=== PATIENT | male | born 1965 | race Caucasian/White ===

== ENCOUNTER 2022-04-15 04:42 | Emergency (ER) | payer OTHER ==
[2022-04-15] MEDS ORDERED: Hydromorphone 1 mg/ml Injection IV ONE (05:01)
[2022-04-15] MEDS ORDERED: Zofran 4 MG/2 ML VIAL IV ONE (05:01)
[2022-04-15] MEDS ORDERED: Sodium Chloride 0.9% 1000 ML 1,000 ML IV STA (05:01)
[2022-04-15] MEDS ORDERED: TORAdol 30 mg Injection IV ONE (05:01)
[2022-04-15] MEDS ORDERED: Zofran 4 MG/2 ML VIAL ONE (05:04)
[2022-04-15] MEDS ORDERED: TORAdol 30 mg Injection ONE (05:04)
[2022-04-15] MEDS ORDERED: Sodium Chloride 0.9% 1000 ML 1,000 ML ONE (05:04)
[2022-04-15] MEDS ORDERED: Hydromorphone 1 mg/ml Injection ONE (05:04)
--- NOTE | 2022-04-15 05:28 | ERPHSYRPT ---
- History of Present Illness Time Seen by Provider: 04/15/22 05:05 Historian: patient Exam Limitations: no limitations Patient Subjective Stated Complaint: pt states that he was having frequent urination tonight, then he was not able to urinate any more. then he began havi ng pain in his groin. Triage Nursing Assessment: pt alert and oriented, answers questions approp. pt back per wheelchair. transfers to stretcher with assist of 1. pt very restless and states pain is beter when he stays bent over at this waist. pt moaning with movement. abd with hypo bowel sounds noted. no urine at this time. Physician History: This is a 56-year-old white male who has no medical issues and is not on any medication and has no known drug allergies and presents with right groin pain that was relatively sudden in onset. Earlier, he was having urinary frequency followed by urgency but difficulty to pass urine. He has never had a thing like this in the past. Patient arrives to the emergency department writhing around in significant pain. Timing/Duration: today Activities at Onset: none Quality: aching, pressure, throbbing Abdominal Pain Onset Location: other Pain Radiation: groin (Right groin) Severity of Pain-Max: moderate Severity of Pain-Current: moderate Modifying Factors: Improves With: nothing Associated Symptoms: other (Right groin) Home Medications: Unobtainable 04/15/22 [History] Hx Tetanus, Diphtheria Vaccination/Date Given: Yes Hx Influenza Vaccination/Date Given: No Hx Pneumococcal Vaccination/Date Given: No Immunizations Up to Date: Yes Travel Risk - International Travel Have you traveled outside of the country in past 3 weeks: No - Coronavirus Screening Are you exhibiting any of the following symptoms?: No Close contact with a COVID-19 positive Pt in past 14-21 Days: No - Vaccine Status Have you recieved a Covid-19 vaccination: No - Review of Systems Constitutional: No Symptoms Eyes: No Symptoms Ears, Nose, & Throat: No Symptoms Respiratory: No Symptoms Cardiac: No Symptoms Abdominal/Gastrointestinal: No Symptoms Genitourinary Symptoms: Frequency, Other (Right groin pain) Musculoskeletal: No Symptoms Skin: No Symptoms Neurological: No Symptoms Psychological: No Symptoms Endocrine: No Symptoms Hematologic/Lymphatic: No Symptoms Immunological/Allergic: No Symptoms All Other Systems: Reviewed and Negative - Past Medical History Pertinent Past Medical History: Yes Endocrine Medical History: Hypothyroidism - Past Surgical History Past Surgical History: Yes - Social History Smoking Status: Never smoker Exposure to second hand smoke: No Drug Use: none Patient Lives Alone: No - Nursing Vital Signs Nursing Vital Signs: Initial Vital Signs Temperature 98.1 F 04/15/22 04:51 Pulse Rate 84 04/15/22 04:51 Respiratory Rate 22 04/15/22 04:51 Blood Pressure 127/104 04/15/22 04:51 O2 Sat by Pulse Oximetry 98 04/15/22 04:51 Pain Scale Pain Intensity 10 - Physical Exam General Appearance: mild distress, alert, anxiety Eye Exam: PERRL/EOMI, eyes nml inspection Ears, Nose, Throat Exam: normal ENT inspection, moist mucous membranes Neck Exam: normal inspection, non-tender, supple, full range of motion Respiratory Exam: normal breath sounds, lungs clear, airway intact, No chest tenderness, No respiratory distress Cardiovascular Exam: regular rate/rhythm, normal heart sounds, normal peripheral pulses Gastrointestinal/Abdomen Exam: soft, normal bowel sounds, No tenderness Male Genitalia Exam: other (Right groin pain) Rectal Exam: not done Back Exam: normal inspection, normal range of motion, No CVA tenderness, No vertebral tenderness Extremity Exam: normal inspection, normal range of motion, pelvis stable Neurologic Exam: alert, oriented x 3, cooperative, boom tender II-XII nml as tested, normal mood/affect, nml cerebellar function, nml station & gait, sensation nml Skin Exam: normal color, warm, dry Lymphatic Exam: No adenopathy SpO2 Interpretation: normal SpO2: 98 O2 Delivery: Room Air - Course Nursing assessment & vital signs reviewed: Yes Ordered Tests: Active Orders 24 hr Category Date Time Status IV Insertion STAT Care 04/15/22 05:01 Active ABDOMEN AND PELVIS W/0 CONTRAS [CT] Stat Exams 04/15/22 05:01 Taken AMYLASE Stat Lab 04/15/22 05:27 Completed CBC W DIFF Stat Lab 04/15/22 05:27 Completed CMP Stat Lab 04/15/22 05:27 Completed LIPASE Stat Lab 04/15/22 05:27 Completed UA W/RFX CULTURE Stat Lab 04/15/22 05:27 Completed Medication Summary Discontinued Medications Generic Name Dose Route Start Last Admin Trade Name Freq PRN Reason Stop Dose Admin Hydromorphone HCl 1 mg 04/15/22 05:01 04/15/22 05:08 Hydromorphone 1 Mg/1ml Inj 1 Mg/Ml Syringe IV 04/15/22 05:02 1 mg STAT ONE Administration Hydromorphone HCl Confirm 04/15/22 05:04 Hydromorphone 1 Mg/1ml Inj 1 Mg/Ml Syringe Administered 04/15/22 05:05 Dose 1 mg .ROUTE .STK-MED ONE Sodium Chloride 1,000 mls @ 999 mls/hr 04/15/22 05:01 04/15/22 05:08 Sodium Chloride 0.9% 1000 Ml IV 04/15/22 06:01 999 mls/hr .Q1H1M STA Administration Sodium Chloride Confirm 04/15/22 05:04 Sodium Chloride 0.9% 1000 Ml Administered 04/15/22 05:05 Dose 1,000 mls @ ud .ROUTE .STK-MED ONE Ketorolac Tromethamine 30 mg 04/15/22 05:01 04/15/22 05:07 Ketorolac Tromethamine 30 Mg/Ml Inj IV 04/15/22 05:02 30 mg STAT ONE Administration Ketorolac Tromethamine Confirm 04/15/22 05:04 Ketorolac Tromethamine 30 Mg/Ml Inj Administered 04/15/22 05:05 Dose 30 mg .ROUTE .STK-MED ONE Ondansetron HCl 4 mg 04/15/22 05:01 04/15/22 05:07 Ondansetron Hcl 4 Mg/2 Ml Vial IV 04/15/22 05:02 4 mg STAT ONE Administration Ondansetron HCl Confirm 04/15/22 05:04 Ondansetron Hcl 4 Mg/2 Ml Vial Administered 04/15/22 05:05 Dose 4 mg .ROUTE .STK-MED ONE Lab/Rad Data: Laboratory Result Diagrams 04/15/22 05:27 04/15/22 05:27 Laboratory Results 04/15/22 04/15/22 04/15/22 Range/Units 05:27 05:27 05:27 WBC 7.7 (4.0-10.5) x10^3/uL RBC 5.12 (4.1-5.6) x10^6/uL Hgb 16.1 (12.5-18.0) g/dL Hct 46.0 (42-50) % MCV 89.8 (78-100) fL MCH 31.4 (26-32) pg MCHC 35.0 (32-36) g/dL RDW 12.6 (11.5-14.0) % Plt Count 241 (150-450) x10^3/uL MPV 10.0 (7.5-11.0) fL Gran % 46.6 (36.0-66.0) % Immature Gran % (Auto) 0.4 (0.00-0.4) % Nucleat RBC Rel Count 0.0 (0.00-0.1) % Eos # (Auto) 0.21 (0-0.5) x10^3/uL Immature Gran # (Auto) 0.03 (0.00-0.03) x10^3u/L Absolute Lymphs (auto) 3.17 (1.0-4.6) x10^3/uL Absolute Monos (auto) 0.65 (0.0-1.3) x10^3/uL Absolute Nucleated RBC 0.00 (0.00-0.01) x10^3u/L Lymphocytes % 41.4 (24.0-44.0) % Monocytes % 8.5 (0.0-12.0) % Eosinophils % 2.7 (0.00-5.0) % Basophils % 0.4 (0.0-0.4) % Absolute Granulocytes 3.57 (1.4-6.9) x10^3/uL Basophils # 0.03 (0-0.4) x10^3/uL Sodium 141 (137-145) mmol/L Potassium 4.4 (3.5-5.1) mmol/L Chloride 106 (98-107) mmol/L Carbon Dioxide 21 L (22-30) mmol/L Anion Gap 18.1 H (5-15) MEQ/L BUN 17 (9-20) mg/dL Creatinine 1.04 (0.66-1.25) mg/dL Estimated GFR > 60.0 ML/MIN Glucose 100 (74-106) mg/dL Calcium 9.6 (8.4-10.2) mg/dL Total Bilirubin 0.70 (0.2-1.3) mg/dL AST 28 (17-59) U/L ALT 36 (0-50) U/L Alkaline Phosphatase 85 (38-126) U/L Serum Total Protein 8.3 H (6.3-8.2) g/dL Albumin 5.0 (3.5-5.0) g/dL Amylase 91 (30-110) U/L Lipase 99 (23-300) U/L Urinalys Dipstick Clnc MAIN LAB Urine Color YELLOW (YELLOW) Urine Appearance CLEAR (CLEAR) Urine pH 6.0 (5-6) Ur Specific [place] 1.010 (1.005-1.025) POC Urine Protein Conf NEGATIVE (Negative) Urine Ketones NEGATIVE (NEGATIVE) Urine Nitrite NEGATIVE (NEGATIVE) Urine Bilirubin NEGATIVE (NEGATIVE) Urine Urobilinogen 0.2 (0-1) mg/dL Urine Leukocytes NEGATIVE (NEGATIVE) Urine WBC (Auto) NONE (0-5) /HPF Urine RBC (Auto) NONE (0-2) /HPF U Epithel Cells (Auto) Not Reportable Urine Bacteria (Auto) Not Reportable Urine RBC NEGATIVE (0-5) Henri/ul Ur Culture Indicated? NO Urine Glucose NEGATIVE (NEGATIVE) mg/dL - Progress Progress: improved, pain not gone completely, re-examined Progress Note: 04/15/22 06:59 CT scan of the abdomen pelvis without contrast is still pending. Patient does not want a Cardona catheter placed until he sees the results of this study. The patient may have urinary retention. Dr. Leon was informed of this pending test and he will follow-up and make final disposition on this patient. 04/15/22 06:59 Counseled pt/family regarding: lab results, diagnosis, need for follow-up, rad results - Departure Departure Disposition: Home Clinical Impression: Urinary retention Condition: Stable Critical Care Time: No Referrals: ANDREW CONTRERAS, TURPENTINE FARMER [Primary Care Provider] - Follow up/PCP as directed Additional Instructions: Follow-up with Dr. Corado, urology tomorrow by phone to make arrangements for follow-up appointment for further evaluation and management.
[2022-04-15 05:34] LABS: Absolute Neutrophil Ct (ANC) 3.57 x10^3/uL (1.4-6.9); Basophil (Absolute #) 0.03 x10^3/uL (0-0.4); Eosinophil % 2.7 % (0.00-5.0); Eosinophil (Absolute #) 0.21 x10^3/uL (0-0.5); Hemoglobin 16.1 g/dL (12.5-18.0); Lymphocyte (Absolute #) 3.17 x10^3/uL (1.0-4.6); Lymphocytes % 41.4 % (24.0-44.0); Mean Cell Volume 89.8 fL (78-100); Mean Corpuscular Hemoglobin 31.4 pg (26-32); Monocyte (Absolute #) 0.65 x10^3/uL (0.0-1.3); Monocytes % 8.5 % (0.0-12.0); Neutrophil % 46.6 % (36.0-66.0); Platelet Count 241 x10^3/uL (150-450); Red Blood Count 5.12 x10^6/uL (4.1-5.6); Red Cell Distribution Width 12.6 % (11.5-14.0); White Blood Count 7.7 x10^3/uL (4.0-10.5)
[2022-04-15 05:50] LABS: Appearance CLEAR (CLEAR); Bilirubin NEGATIVE (NEGATIVE); Dipstick done @ ? MAIN LAB; Glucose NEGATIVE (NEGATIVE); Ketones NEGATIVE (NEGATIVE); Nitrite NEGATIVE (NEGATIVE); Protein,Urine Dip NEGATIVE (Negative); RBC NEGATIVE Ery/ul (0-5); Urobilinogen 0.2 mg/dL (0-1)
[2022-04-15 05:51] LABS: Urine Cultured Indicated? NO
[2022-04-15 05:58] LABS: ALKALINE PHOSPHATASE 85 U/L (38-126); AMYLASE 91 U/L (30-110); ANION GAP 18.1 MEQ/L (5-15); BLOOD UREA NITROGEN 17 mg/dL (9-20); CHLORIDE 106 mmol/L (98-107); Calcium 9.6 mg/dL (8.4-10.2); Carbon Dioxide 21 mmol/L (22-30); Creatinine 1 1.04 mg/dL (0.66-1.25); EST GLOMERULAR FILTRATION RATE > 60.0 ML/MIN; Glucose 100 mg/dL (74-106); LIPASE 99 U/L (23-300); Potassium 4.4 mmol/L (3.5-5.1); SGOT/AST 28 U/L (17-59); SGPT/ALT 36 U/L (0-50); SODIUM 141 mmol/L (137-145); Total Protein 8.3 g/dL (6.3-8.2)
[2022-04-15] MEDS ORDERED: Levofloxacin 500 MG Tablet ONE (07:45)
[2022-04-15] MEDS ORDERED: Levofloxacin 250MG Tablet PO ONE (07:48)
[2022-04-15 08:02] VITALS: BP 120/77; PULSE 79; O2SAT 96
--- NOTE | 2022-04-15 09:19 | XRAY ---
Indication: Right flank pain. Difficulty urinating. Multiple contiguous axial images obtained through the abdomen and pelvis without contrast. Comparison: None Lung bases demonstrates 1.1 cm left lower lobe calcified granuloma. A few additional sub-5 mm bilateral lower lobe noncalcified nodules possibly granulomatous. No infiltrate or effusion. Heart not enlarged. Noncontrasted stomach and bowel loops appear nonobstructed with normal appendix. Markedly distended urinary bladder concerning for outlet obstruction versus project bladder. Enlarged/nodular prostate gland impresses on the base of the bladder. Mild diffuse fatty liver and 14.6 cm splenomegaly. Remaining liver, gallbladder, pancreas, spleen, adrenal glands, kidneys, ureters, bladder, and aorta are unremarkable for noncontrast exam. Osseous structures intact with minimal degenerative changes throughout the spine. No ventral or inguinal hernias. Impression: 1. Distended urinary bladder. Rule out outlet obstruction versus neurogenic bladder. 2. Enlarged/nodular prostate gland. 3. Bilateral lower lobe noncalcified micronodules. Findings possibly granulomatous as there is evidence for old granulomatous disease elsewhere. Baseline CT chest recommended with follow-up per Fleischner guidelines. 4. Incidental fatty liver and splenomegaly. Comment: Preliminary interpretation made by [facility]. No critical discrepancy.
== END 2022-04-15 08:04 | disposition home or self-care (01) ==
LOC: ED 04:42
DX: N40.1 Benign prostatic hyperplasia with lower urinary tract symptoms (principal); R33.8 Other retention of urine; R10.31 Right lower quadrant pain; R35.0 Frequency of micturition; Z28.310 Unvaccinated for COVID-19
CPT/HCPCS: 36000; 36415; 51702; 74176; 80053; 81015; 82150; 83690; 85025; 96374; 96375; 99284; J1170; J1885; J2405; A9270-GY